=== PATIENT | male | born 1955 | race Caucasian/White ===

== ENCOUNTER 2016-09-24 11:40 | Emergency (ER) | payer OTHER ==
[2016-09-24 11:46] VITALS: BP 138/74; PULSE 78; TEMP 97.7; BMI 30.1
--- NOTE | 2016-09-24 12:16 | PDOC ---
History of Present Illness - General Chief Complaint: Injury Stated Complaint: INJURY Time Seen by Provider: 09/24/16 12:00 History Source: Patient Exam Limitations: No Limitations - History of Present Illness Initial Comments: 09/24/16 12:12 61 yr male fell yesterday at work on wet floor injured right hand, wrist and right side ribs. no head trauma no LOC. Pt took 2 advil [employer]. 09/24/16 12:13 Severity: reports: mild Pain Location: reports: upper extremity (right hand, right ribs ) Method of Injury: Yes: fall Loss of Consciousness: no loss of consciousness Past History - Past Medical History Allergies/Adverse Reactions: Allergies Allergy/AdvReac Type Severity Reaction Status Date / Time seafood Allergy Uncoded 09/24/16 11:43 Home Medications: Ambulatory Orders Losartan/Hydrochlorothiazide [Losartan-Hctz 100-25 mg Tab] 1 each PO ASDIR 09/24 Oxycodone HCl/Acetaminophen [Percocet 5-325 mg Tablet] 1 tab PO Q6H PRN #8 tablet MDD 4 tabs 09/24/16 Rosuvastatin Calcium [Crestor] 5 mg PO ASDIR 09/24/16 HTN: Yes - Psycho/Social/Smoking Cessation Hx Anxiety: No Suicidal Ideation: No Smoking History: Never smoked Have you smoked in the past 12 months: No Information on smoking cessation initiated: No Hx Alcohol Use: No Drug/Substance Use Hx: No Substance Use Type: None Trauma Specific PMHX - Complaint Specific PMHX Arthritis: No Back Injury: No Neck Injury: No Hx Sacro Iliac Joint Dysfunction: No Review of Systems - Review of Systems Able to Perform ROS?: Yes Is the patient limited Georgian proficient: No Constitutional: No: Symptoms Reported HEENTM: No: Symptoms Reported Respiratory: No: Symptoms reported Cardiac (ROS): No: Symptoms Reported ABD/GI: No: Symptoms Reported : No: Symptoms Reported Musculoskeletal: Yes: See HPI *Physical Exam - Vital Signs Last Vital Signs Temp Pulse Resp BP Pulse Ox 97.7 F 78 18 138/74 100 09/24/16 11:43 09/24/16 11:43 09/24/16 11:43 09/24/16 11:43 09/24/16 11:43 - Physical Exam General Appearance: Yes: Nourished, Appropriately Dressed HEENT: positive: EOMI, FAVIAN, Normal ENT Inspection, TMs Normal, Pharynx Normal Neck: negative: Tender Respiratory/Chest: positive: Lungs Clear, Normal Breath Sounds, Other (ttp right posterior flank ). negative: Chest Tender Cardiovascular: positive: Regular Rhythm, Regular Rate Gastrointestinal/Abdominal: positive: Normal Bowel Sounds, Soft Musculoskeletal: positive: Normal Inspection. negative: CVA Tenderness, CVA Tenderness (R), CVA Tenderness (L), Vertebral Tenderness Extremity: positive: Normal Capillary Refill, Normal Inspection, Normal Range of Motion, Other (right hand dorsal surface red with swelling , FROM nv intact ) Integumentary: positive: Normal Color, Dry, Warm Neurologic: positive: Fully Oriented, Alert, Normal Mood/Affect, Normal Response , Motor Strength 06/14 ED Treatment Course - RADIOLOGY Radiology Studies Ordered: Category Date Time Status RIBS RIGHT SIDE [RAD] Stat Radiology 09/24/16 12:12 Ordered WRIST W/HAND-RIGHT* [RAD] Stat Radiology 09/24/16 12:12 Ordered Medical Decision Making - Medical Decision Making 09/24/16 12:15 cc: slip and fall yesterday no loc no head trauma tender to touch right hand dorsal surface FROM moves all 5 digits ttp right rib area flank, no brusing no deformity , no crepitus on palpation lungs CTA bilaterally *DC/Admit/Observation/Transfer Diagnosis at time of Disposition: Contusion Qualifiers: Encounter type: initial encounter Contusion area: thoracic wall Contusion of thoracic wall detail: back wall of thorax Laterality: right Qualified Code(s): S20.221A - Contusion of right back wall of thorax, initial encounter Contusion of right hand Qualifiers: Encounter type: initial encounter Qualified Code(s): S60.221A - Contusion of right hand, initial encounter - Discharge Dispostion Disposition: HOME Condition at time of disposition: Good - Prescriptions Prescriptions: Oxycodone HCl/Acetaminophen [Percocet 5-325 mg Tablet] 1 tab PO Q6H PRN #8 tablet MDD 4 tabs PRN Reason: Severe Pain - Referrals Referrals: Mark Talbert MD [Primary Care Provider] - Damien Forbes MD [Staff Physician] - - Patient Instructions Additional Instructions: take percocet for severe pain take motrin for mild to moderate pain apply ice to the affected areas every 2hrs for 20 minutes for the next 2 days then apply warm compresses follow with your primary care in 1-2 days for follow up follow with the orthopedist if symptoms worsen or persist Return to ER for any shortness of breath, chest pain or other concerns
== END 2016-09-24 13:20 | disposition home or self-care (01) ==
LOC: JERFT 11:40
DX: S20.221A Contusion of right back wall of thorax, initial encounter (principal); S60.221A Contusion of right hand, initial encounter; Z91.013 Allergy to seafood; W01.0XXA Fall on same level from slipping, tripping and stumbling without subsequent striking against object, initial encounter; Y93.01 Activity, walking, marching and hiking; Y92.89 Other specified places as the place of occurrence of the external cause; Y99.0 Civilian activity done for income or pay
CPT/HCPCS: 71101-TC-RT; 73110-TC-RT; 73130-TC-RT; 99281-25